=== PATIENT | male | born 1975 | race Hispanic/Latino ===

== ENCOUNTER 2017-11-13 00:17 | Emergency (ER) | payer OTHER ==
[~2017-11-13 00:17] MED LIST: ACET1TAB12 PO; AMLO5TAB2 PO; IBUP-2077 PO; ICOS1CAP PO; LISI1TAB13 PO; MELOXICAM PO; [UNRECOGNIZED DRUG - CODE] PO; [UNRECOGNIZED DRUG - OTHER] PO
[2017-11-13 00:50] LABS: BASOPHILS % (AUTO) 0.6 % (0.0-5.0); EOSINOPHILS % (AUTO) 1.3 % (0.0-8.0); HEMATOCRIT 46.2 % (42-54); MEAN CORPUSCULAR HEMOGLOBIN 31.4 pg (27.0-33.0); MEAN CORPUSCULAR HGB CONC 35.1 g/dL (32.0-36.0); MEAN CORPUSCULAR VOLUME 89.4 fL (79-99); MONOCYTES % (AUTO) 6.7 % (3.0-13.0); NEUTROPHILS % (AUTO) 71.4 % (40.0-77.0); PLATELET COUNT (AUTO) 238 K/uL (130-400); RED BLOOD CELL COUNT(AUTO) 5.16 MIL/uL (4.50-6.20); RED CELL DISTRIBUTION WIDTH 13.8 % (11.0-15.5); WHITE BLOOD COUNT (AUTO) 10.8 K/uL (4.8-10.8)
[2017-11-13] MEDS ORDERED: MORPHINE SULFATE 4 MG/1ML SYG ONE ×2 (01:00→02:15)
[2017-11-13] MEDS ORDERED: SODIUM CHLORIDE 0.9% 1000ML 1,000 ML IV ONE (01:00)
[2017-11-13] MEDS ORDERED: ONDANSETRON HCL 4 MG/2 ML VIAL ONE (01:00)
[2017-11-13 01:03] LABS: ALBUMIN 3.6 g/dL (3.5-5.0); BILIRUBIN,TOTAL 0.4 mg/dL (0.2-1.0); TOTAL PROTEIN, SERUM 7.3 g/dL (6.0-8.3)
[2017-11-13] MEDS ORDERED: KETOROLAC TROMETHAMINE 30MG/ML ONE (03:05)
[2017-11-13 03:33] LABS: APPEARANCE,URINE Clear (CLEAR); BILIRUBIN,URINE Negative (NEGATIVE); COLOR,URINE Yellow (YELLOW); GLUCOSE, URINE (UA) TRACE mg/dL (NEGATIVE); KETONES,URINE Negative (NEGATIVE); LEUKOCYTE ESTERASE ,URINE Negative (NEGATIVE); NITRATE,URINE Negative (NEGATIVE); OCCULT BLOOD,URINE Negative (NEGATIVE); PH,URINE 6.5 (5.0-8.0); PROTEIN,URINE Negative (NEGATIVE)
[2017-11-13 03:47] LABS: BACTERIA,URINE None Seen /HPF (None Seen); RBC,URINE 0-1 /HPF (0-1); SQUAMOUS EPITHELIAL CELL,UR Rare /LPF (0-2); WBC,URINE None Seen /HPF (0-1); YEAST,URINE BUDDING None Seen /HPF (None Seen)
[2017-11-25] MEDS ORDERED: NAPR-1023 PO (15:44)
[2017-11-25] MEDS ORDERED: TYL3 PO (15:44)
== END 2017-11-13 04:02 | disposition home or self-care (01) ==
LOC: EDH 00:17
DX: K80.20 Calculus of gallbladder without cholecystitis without obstruction (principal); I10 Essential (primary) hypertension; J45.909 Unspecified asthma, uncomplicated
CPT/HCPCS: 36415; 76705; 80053; 81001; 82150; 82550; 83690; 84484; 85025; 93005; 96361; 96374; 96375; 96376; 99285; J1885; J2270 ×2; J2405; J7030

== ENCOUNTER 2017-11-27 06:53 | Day surgery (SDC) | payer OTHER ==
[2017-11-25 15:25] VITALS: BP 149/92
[2017-11-25 15:32] LABS: BASOPHILS % (AUTO) 0.8 % (0.0-5.0); EOSINOPHILS % (AUTO) 0.5 % (0.0-8.0); HEMATOCRIT 48.1 % (42-54); LYMPHOCYTES % (AUTO) 22.4 % (21.0-51.0); MEAN CORPUSCULAR HEMOGLOBIN 31.6 pg (27.0-33.0); MEAN CORPUSCULAR HGB CONC 35.5 g/dL (32.0-36.0); MEAN CORPUSCULAR VOLUME 89.1 fL (79-99); MONOCYTES % (AUTO) 5.5 % (3.0-13.0); NEUTROPHILS % (AUTO) 70.8 % (40.0-77.0); PLATELET COUNT (AUTO) 235 K/uL (130-400); RED CELL DISTRIBUTION WIDTH 13.4 % (11.0-15.5); WHITE BLOOD COUNT (AUTO) 9.8 K/uL (4.8-10.8)
[2017-11-25 15:39] LABS: APPEARANCE,URINE Clear (CLEAR); BILIRUBIN,URINE Negative (NEGATIVE); COLOR,URINE Yellow (YELLOW); GLUCOSE, URINE (UA) Negative (NEGATIVE); KETONES,URINE Negative (NEGATIVE); LEUKOCYTE ESTERASE ,URINE Negative (NEGATIVE); NITRATE,URINE Negative (NEGATIVE); OCCULT BLOOD,URINE Negative (NEGATIVE); PH,URINE 5.5 (5.0-8.0); PROTEIN,URINE Negative (NEGATIVE); UROBILINOGEN,URINE 0.2 mg/dL (0.2-1.0)
[2017-11-25 15:43] LABS: ALBUMIN 4.1 g/dL (3.5-5.0); BILIRUBIN,DIRECT 0.2 mg/dL (0.0-0.3); BILIRUBIN,TOTAL 0.8 mg/dL (0.2-1.0); TOTAL PROTEIN, SERUM 8.2 g/dL (6.0-8.3)
[2017-11-25 16:03] LABS: POTASSIUM 3.7 mmol/L (3.5-5.1)
[~2017-11-27] VITALS: Ht 177.8 cm; Wt 103.6 kg
[2017-11-27] VITALS (17 sets, daily range): BP systolic 124–141; BP diastolic 71–88
[~2017-11-27 06:53] MED LIST changes: -ACET1TAB12 PO; -AMLO5TAB2 PO; -IBUP-2077 PO; -ICOS1CAP PO; -MELOXICAM PO; +NAPR-1023 PO; +TYL3 PO; -[UNRECOGNIZED DRUG - CODE] PO; -[UNRECOGNIZED DRUG - OTHER] PO
[2017-11-27] MEDS ORDERED: LACTATED RINGERS 1000ML 1,000 ML IV ONE (07:32)
[2017-11-27] MEDS ORDERED: ROCURONIUM BROMIDE 10MG/1ML 5ML VL ONE (07:38)
[2017-11-27] MEDS ORDERED: MIDAZOLAM HCL 1 MG/ML 2ML VIAL ONE (07:38)
[2017-11-27] MEDS ORDERED: LIDOCAINE PF 2% 5ML ABBOJECT ONE (07:38)
[2017-11-27] MEDS ORDERED: PROPOFOL 10 MG/ML 20ML VIAL IV ONE ×2 (07:38→08:53)
[2017-11-27] MEDS ORDERED: SUCCINYLCHOLINE 200MG/10ML SYR ONE (07:38)
[2017-11-27] MEDS ORDERED: FENTANYL CITRATE PF 50 MCG/1 ML 5ML AMP IV ONE (07:38)
[2017-11-27] MEDS ORDERED: EPHEDRINE SULFATE 50 MG/ML AMPULE ONE (08:23)
[2017-11-27] MEDS ORDERED: PHENYLEPHRINE HCL 10 MG/ML 1ML VIAL IV ONE (08:25)
[2017-11-27] MEDS ORDERED: MORPHINE SULFATE 10 MG/ML 1ML SYG ONE (08:31)
[2017-11-27] MEDS ORDERED: GLYCOPYRROLATE 0.2 MG/ML 5 ML VIAL ONE (08:34)
[2017-11-27] MEDS ORDERED: MEPERIDINE-PF 25 MG/ML SYG ONE ×2 (09:24→09:35)
[2017-11-27] MEDS ORDERED: ALBU0.63 IH (10:14)
== END 2017-11-27 10:52 | disposition home or self-care (01) ==
LOC: DAH 06:53
PROVIDERS: ATTEND Surgery
DX: K80.12 Calculus of gallbladder with acute and chronic cholecystitis without obstruction (principal); Z68.30 Body mass index [BMI] 30.0-30.9, adult; I10 Essential (primary) hypertension; E66.9 Obesity, unspecified; Z98.890 Other specified postprocedural states; Z79.899 Other long term (current) drug therapy; Z80.9 Family history of malignant neoplasm, unspecified; Z68.34 Body mass index [BMI] 34.0-34.9, adult
CPT/HCPCS: 36415; 47562; 80048; 80076; 81003; 85025; 88304; A4450; A4600; A4649; C1769 ×4; J0330; J2001; J2175 ×2; J2250; J2270; J2370; J2704 ×2; J3010; J3490 ×3; J7030; J7120

== ENCOUNTER 2024-12-18 21:16 | Emergency (ER) | payer BC, OTHER ==
[~2024-12-18] VITALS: Ht 177.8 cm; Wt 108.9 kg
[~2024-12-18 21:16] MED LIST changes: +ALBU0.63 IH; -LISI1TAB13 PO; +LISI1TAB53 PO; -NAPR-1023 PO; +NAPR-1194 PO
--- NOTE | 2024-12-18 21:21 | NUR ---
PATIENT TO CT WITH RN
--- NOTE | 2024-12-18 21:39 | HMCIMG ---
CT HEAD WITHOUT CONTRAST INDICATION: Left facial droop TECHNIQUE: Noncontrast axial helical CT images from the vertex through the skull base using 5 mm slice thickness without contrast material. CT was performed with one or more of the following dose reduction techniques: Automated exposure control, adjustment of the mA and/or kV according to patient size, or use of iterative reconstruction technique. COMPARISON: None FINDINGS: Generalized mild cerebral cortical atrophy. No evidence for abnormal extra-axial fluid collections or masses. The ventricles and sulci are normal in size and configuration. No evidence for intracranial parenchymal, epidural, or subdural hemorrhage, mass effect or midline shift. The singletary-white matter differentiation is well preserved. No secondary evidence to suggest acute ischemia. Mild calcific plaque is present along the woodson of the cavernous segments of both internal carotid arteries. The brainstem and cerebellum appear normal. The visualized orbits appear unremarkable. The visible paranasal sinuses and mastoid air cells are clear. The calvarium appears normal. IMPRESSION: No acute intracranial process identified.
--- NOTE | 2024-12-18 21:40 | NUR ---
PATIENT RETURNED FROM CT
--- NOTE | 2024-12-18 21:57 | ERN ---
General Chief Complaint: Stroke Symptoms Stated Complaint: FACIAL DROOP, Time Seen by MD: 21:28 Source: patient, family History of Present Illness Initial Comments Patient is a 49-year-old male with high blood pressure diabetes hypercholesterolemia and asthma from smoking cigarettes who was in his usual state of health until this morning at 6:00 a.m. when he felt that the left side of his face was numb and when he tried to brush his teeth water with dribble out of the middle of his mouth. He also noted that his eyes were not closing at the same time. And that he was having a harder time closing his left eye. Patient went to work came home at 1:00 a.m. and took a nap. Stating that he felt maybe in a little bit of a daze. At 7:00 p.m. today the patient could not chew properly in the food which is lodged into his left cheek and he would have to push it over into the middle of his math to continue chewing. Patient can move all of his extremities okay there was no incontinence of stool or urine. Allergies: Coded Allergies: No Known Drug Allergies (Unverified Allergy, Unknown, 03/21/16) Home Meds Reported Medications Albuterol Sulfate (Albuterol Sulfate) 0.63 Mg/3 Ml Vial.neb, 0.63 MG IH AD PRN for ASTHMA, INH 11/27/17 Acetaminophen with Codeine (Tylenol with Codeine #3) 1 Tab Tab, 2 TAB PO Q6H PRN for pain, TAB 11/25/17 Naproxen (Naproxen) 500 Mg Tablet, 500 MG PO BID PRN for pain, TAB 11/25/17 Lisinopril/Hydrochlorothiazide (Lisinopril-Hctz 20-25 mg Tab) 1 Each Tablet, 1 TAB PO DAILY, #30 03/21/16 Past Medical History Past Medical History: Asthma, Diabetes-Type II, High Cholesterol, Hypertension Past Surgical History: Cholecystectomy, Other Surgical History Other: BACK Constitutional: (-) chills, (-) diaphoresis, (-) fever, (-) malaise, (-) weakness, (-) other documentation EENTM: (-) eye pain, (-) blurred vision, (-) tearing, (-) double vision, (-) ear pain, (-) ear discharge, (-) nose pain, (-) nose congestion, (-) throat pain, (-) Throat swelling, (-) mouth pain, (-) tooth pain, (-) mouth swelling, (-) other documentation Respiratory: (-) cough, (-) orthopnea, (-) short of breath, (-) stridor, (-) wheezing, (-) other documentation Cardiovascular: (-) chest pain, (-) edema, (-) palpitations, (-) syncope, (-) dyspnea on exertion, (-) other documentation Gastrointestinal/Abdominal: (-) nausea, (-) vomiting, (-) diarrhea, (-) abdominal pain, (-) abdominal distention, (-) constipation, (-) rectal bleeding, (-) dark stool/melena, (-) other documentation Genitourinary: (-) penile discharge, (-) dysuria, (-) frequency, (-) hematuria, (-) pain, (-) other documentation Musculoskeletal: (-) Neck pain, (-) back pain, (-) Flank Pain, (-) joint pain, (-) joint swelling, (-) muscle pain, (-) muscle stiffness, (-) gout, (-) other documentation Skin: (-) laceration, (-) contusion, (-) abrasion, (-) abscess, (-) rash, (-) change in color, (-) change in hair, (-) change in nails, (-) diaphoresis, (-) dryness, (-) other documentation Neuro: (-) altered mental status, (-) headache, (-) syncope, (-) paralysis, (-) numbness, (-) seizure, (-) pre-existing deficit, (-) tremors, (-) weakness, (-) dizziness, (-) slurred speech, (-) vertigo, (-) other documentation Physical Exam General Appearance: (+) mild distress Orientation: (+) alert, (+) oriented x 3 Head/Face Trauma: No Face Comment When patient's miles he has a left-sided mouth droop. When he raises his eyebrows it is symmetrical. Eye: bilateral eye normal inspection, bilateral eye PERRL, bilateral eye EOMI Eyes Comment Patient has to try extra hard to close his left eye. All of his extraocular muscles are intact bilaterally. He has no diplopia. And no visual field defects. Ear, Nose, Throat: (+) hearing grossly normal, (+) normal ENT inspection, (+) moist mucous membraine, (+) normal pharynx Neck: (+) normal inspection, (+) supple, (+) full range of motion Respiratory: (+) chest non-tender, (+) lungs clear, (+) well ventilated Heart: (+) tachycardia Vascular: (+) no edema Gastrointestinal: (+) soft, (+) non-tender, (+) bowel sound present Extremities: (+) normal range of motion, (+) non-tender, (+) normal inspection, (+) no pedal edema Neurologic/Psychiatric: (+) normal speech, (+) no sensory deficits NIH STROKE SCALE: NIH STROKE SCALE Response (Comments) Value Level of Consciousness Alert 0 Ask patient month and their age Answers both correct 0 Command to open eyes, make fist and let go Obeys both correct 0 Best gaze (horizontal eye movement) Normal 0 Visual Field Testing No Visual Field Loss 0 Facial Paresis Minor Paralysis (Patient has a left mouth droop.) 1 Motor Function - Left Arm Normal 0 Motor Function - Right Arm Normal 0 Motor Function - Left Leg Normal 0 Motor Function - Right Leg Normal 0 Limb Ataxia No Ataxia 0 Sensory-pin prick to arms, legs, trunk and face Normal 0 Best Language (describe picture, name items and read) No Aphasia 0 Dysarthria (read several words) Normal Articulation 0 Extinction and Inattention Normal 0 Total 1 Neuro Comment: Patient definite left mouth droop and left eyelid not as strong as the right lid when he closes his eyes. Results Laboratory and Microbiology Lab and Micro Result Laboratory Tests Test 12/18/24 21:52 12/18/24 22:14 White Blood Count 9.6 K/uL (4.8-10.8) Red Blood Count 4.74 MIL/uL (4.50-6.20) Hemoglobin 15.2 g/dL (14.0-18.0) Hematocrit 41.8 % (42-54) L Mean Corpuscular Volume 88.2 fL (79-99) Mean Corpuscular Hemoglobin 32.1 pg (27.0-33.0) Mean Corpuscular Hemoglobin Concent 36.4 g/dL (32.0-36.0) H Red Cell Distribution Width 13.2 % (11.0-15.5) Platelet Count 215 K/uL (130-400) Mean Platelet Volume 10.1 fL (7.5-10.5) Immature Granulocyte % (Auto) 0.6 % (0-1) Neutrophils (%) (Auto) 66.9 % (40.0-77.0) Lymphocytes (%) (Auto) 25.2 % (21.0-51.0) Monocytes (%) (Auto) 5.7 % (3.0-13.0) Eosinophils (%) (Auto) 1.1 % (0.0-8.0) Basophils (%) (Auto) 0.5 % (0.0-5.0) Neutrophils # (Auto) 6.4 K/uL (1.8-7.7) Lymphocytes # (Auto) 2.4 K/uL (1.0-4.8) Monocytes # (Auto) 0.6 K/uL (0.1-1.0) Eosinophils # (Auto) 0.11 K/uL (0.00-0.70) Basophils # (Auto) 0.05 K/uL (0.00-0.20) Absolute Immature Granulocyte (auto 0.06 K/uL (0-1) Nucleated Red Blood Cells 0.0 % (0.0-0.19) Sodium Level 140 mmol/L (136-145) Potassium Level 3.7 mmol/L (3.5-5.1) Chloride Level 103 mmol/L (101-111) Carbon Dioxide Level 27 mmol/L (21-32) Blood Urea Nitrogen 15 mg/dL (7-18) Creatinine 1.1 mg/dL (0.5-1.3) Glomerular Filtration Rate Calc 83 mL/min (>90) Random Glucose 334 mg/dL (70-105) H Total Calcium 8.2 mg/dL (8.5-10.1) L Troponin I High Sensitivity 5 ng/L (4-75) Whole Blood Glucose 281 MG/DL (70-110) H MDM Head CT non-con negative. 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 I discussed this case with the neurologist on-call and he agrees with me. I will discharge the patient with the steroids and antivirals. ED Course Orders Procedure Category Date Status Time Ct Head/Brain W/O CT 12/18/24 Resulted Contrast 21:18 Cbc With Differential LAB 12/18/24 In Process 22:03 12 Lead Ekg Tracing- EKG 12/18/24 Logged Technical 22:03 Lactated Ringers PHA 12/18/24 In Process 1000ml (Lactated 22:30 Troponin I High LAB 12/18/24 Complete Sensitivity 22:03 B-Type Natriuretic LAB 12/18/24 In Process Peptide 22:03 Bedside Glucose CPOE 12/18/24 Transmitted Fingerstick 22:03 Nihss Every Shift And CPOE 12/18/24 Transmitted PRN 22:03 Neurological Vs Q4hrs APOLINAR 12/18/24 Transmitted 22:03 Vital Signs Per CPOE 12/18/24 Transmitted Routine 22:03 Cardiac Monitoring CPOE 12/18/24 Transmitted 22:03 Pulse Ox(Continuous) RT 12/18/24 Transmitted 22:03 Complete Nih Stroke CPOE 12/18/24 Transmitted Scale 22:03 Basic Metabolic Panel LAB 12/18/24 Complete 22:03 Current Medications Medications (Trade) Dose Ordered Sig/Jacob Route PRN Reason Start Time Stop Time Status Last Admin Dose Admin Lactated Ringer's 1,000 ml @ 125 mls/hr ONCE ONCE IV 12/18/24 22:30 12/19/24 06:29 12/18/24 22:25 Vital Signs Date Time Temp Pulse Resp B/P (MAP) Pulse Ox O2 Delivery O2 Flow Rate FiO2 12/18/24 22:23 91 16 143/83 96 Room Air* 0 21 12/18/24 21:18 98.2 100 20 221/126 99 Room Air DX & DISP Disposition: Discharge Departure Impression: Primary Impression: Walker's palsy Condition: Stable Scripts Prednisone (Prednisone) 50 Mg Tablet 1 TAB PO DAILY for 10 Days, #10 TAB 0 Refills Prov: NEGIN BHANDARI MD 12/18/24 Valacyclovir HCl (Valacyclovir) 1,000 Mg Tablet 1 TAB PO TID for 10 Days, #21 TAB 0 Refills Prov: NEGIN BHANDARI MD 12/18/24 Additional Instructions: If your eye does not close it night you need to get eye drops such as artificial tears or a lubricating ointment at night. Alternatively you can wear an eye patch or some tape over the eye to keep the lid shut. Referrals: SELF,REFERRAL (PCP) NEGIN BHANDARI MD Dec 18, 2024 21:57
[2024-12-18 22:13] LABS: BASOPHILS # (AUTO) 0.05 K/uL (0.00-0.20); BASOPHILS % (AUTO) 0.5 % (0.0-5.0); EOSINOPHILS # (AUTO) 0.11 K/uL (0.00-0.70); EOSINOPHILS % (AUTO) 1.1 % (0.0-8.0); HEMATOCRIT 41.8 % (42-54); IMMATURE GRANULOCYTE ABSOLUTE 0.06 K/uL (0-1); LYMPHOCYTES # (AUTO) 2.4 K/uL (1.0-4.8); LYMPHOCYTES % (AUTO) 25.2 % (21.0-51.0); MEAN CORPUSCULAR HEMOGLOBIN 32.1 pg (27.0-33.0); MEAN CORPUSCULAR HGB CONC 36.4 g/dL (32.0-36.0); MEAN CORPUSCULAR VOLUME 88.2 fL (79-99); MONOCYTES # (AUTO) 0.6 K/uL (0.1-1.0); MONOCYTES % (AUTO) 5.7 % (3.0-13.0); NEUTROPHILS # (AUTO) 6.4 K/uL (1.8-7.7); NEUTROPHILS % (AUTO) 66.9 % (40.0-77.0); PLATELET COUNT (AUTO) 215 K/uL (130-400); RED BLOOD CELL COUNT(AUTO) 4.74 MIL/uL (4.50-6.20); RED CELL DISTRIBUTION WIDTH 13.2 % (11.0-15.5); WHITE BLOOD COUNT (AUTO) 9.6 K/uL (4.8-10.8)
[2024-12-18 22:19] LABS: CREATININE 1.1 mg/dL (0.5-1.3); POTASSIUM 3.7 mmol/L (3.5-5.1)
[2024-12-18] MEDS: LACTATED RINGERS 1000ML 1,000 ML IV ONE (22:25)
[2024-12-18 22:49] LABS: B-TYPE NATRIURETIC PEPTIDE < 5 pg/mL (0-100)
[2024-12-18] MEDS ORDERED: VALA100031 PO (22:54)
[2024-12-18] MEDS ORDERED: PRED50TA2 PO (22:54)
[2024-12-18 23:13] VITALS: BP 148/93; PULSE 88; RESP 16; TEMP 98.5; O2SAT 99
--- NOTE | 2024-12-19 04:36 | EKG ---
[facility] Test Date: 2024-12-18 Test Time: 22:17:27 Pat Name: NICOLA ESTEVES Department: ED Room: Gender: M Director Of Special Education: 09 : 1975 Requested By: NEGIN BHANDARI Order Number: [id number] Reading MD: Raciel Moreno Measurements Intervals [place] Rate: 86 P: 49 ID: [id number] QRS: 27 QRSD: 100 T: 23 QT: 361 QTc: 431 Interpretive Statements Sinus rhythm Probable left atrial enlargement ST elev, probable normal early repol pattern Compared to ECG 11/13/2017 00:25:01 ST (T wave) deviation now present Electronically Signed On 12-19-2024 14:56:47 CDT by Raciel Moreno Please click the below link to view image of tracing.
== END 2024-12-18 23:16 | disposition home or self-care (01) ==
LOC: EDH 21:16
DX: G51.0 Bell's palsy (principal); J45.909 Unspecified asthma, uncomplicated; E11.9 Type 2 diabetes mellitus without complications; I10 Essential (primary) hypertension; E78.00 Pure hypercholesterolemia, unspecified; F17.210 Nicotine dependence, cigarettes, uncomplicated; Z79.899 Other long term (current) drug therapy; Z90.49 Acquired absence of other specified parts of digestive tract
CPT/HCPCS: 99284; 96360; 70450; 84484; 80048; 83880; 85025; 82948; 36415; 93005; J7120